=== PATIENT | male | born 1965 | race Caucasian/White ===

== ENCOUNTER 2016-12-03 10:13 | Observation (INO) | payer OTHER ==
[~2016-12-03] VITALS: Ht 182.9 cm; Wt 110.7 kg
[~2016-12-03 10:13] MED LIST: ALPR.5 PO; ASPI-110 PO; LAMO25 PO; METO25TA3 PO; SERO25TA PO; TAMS5CAP PO; TRAM50TA PO; ZOFR4TAB3 SL
[2016-12-03 10:30] VITALS: BP 128/58; PULSE 50; RESP 16; TEMP 97.3; O2SAT 94
[2016-12-03] MEDS ORDERED: TEMAZEPAM 15 MG CAP PO PRN (10:45)
[2016-12-03] MEDS ORDERED: MAGNESIUM HYDROXIDE SUSP 30 ML CUP PO PRN (10:45)
[2016-12-03] MEDS ORDERED: ACETAMINOPHEN 325 MG TAB PO PRN (10:45)
[2016-12-03] MEDS ORDERED: SODIUM CHLORIDE 0.9% FLUSH 10 ML FLUSH IV FLUSH PRN (10:45)
[2016-12-03] MEDS ORDERED: ONDANSETRON HCL 4 MG/2 ML VIAL IVP PRN (10:45)
[2016-12-03] MEDS ORDERED: NALOXONE HCL 0.4 MG/ML AMP IV PRN (10:45)
[2016-12-03] MEDS ORDERED: HYDROmorphone HCL PF 1 MG/ML VIAL IV PUSH PRN (10:45)
[2016-12-03] MEDS ORDERED: LAMO25 PO ×2 (10:50→16:16)
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
[2016-12-03] MEDS: 1/2 NS + KCL 20 MEQ INJ 1,000 ML IV SCH ×3 (11:41→22:07)
[2016-12-03] MEDS: ACETAMINOPHEN/HYDROcodone 325 MG/5 MG TAB PO PRN ×2 (11:41→18:04)
[2016-12-03 12:00] VITALS: BP 125/68; PULSE 53; RESP 16; TEMP 97.4; O2SAT 94
[2016-12-03] MEDS ORDERED: HYDR12.56 PO (12:49)
[2016-12-03] MEDS ORDERED: CETI1TAB53 (12:54)
[2016-12-03] MEDS ORDERED: SYMB160A INH (12:54)
[2016-12-03] MEDS ORDERED: RESP: ALBUTEROL 2.5 MG/IPRATROPIUM 0.5 MG NEB (PRN) NEB STA (15:33)
[2016-12-03 15:59] VITALS: O2SAT 98
[2016-12-03 16:00] VITALS: BP 116/57; PULSE 55; RESP 16; TEMP 97.8; O2SAT 95
[2016-12-03] MEDS ORDERED: ALPRAZolam 0.5 MG TAB PO PRN (16:00)
[2016-12-03] MEDS ORDERED: RESP: ALBUTEROL 2.5 MG/IPRATROPIUM 0.5 MG NEB (PRN) NEB (16:00)
[2016-12-03] MEDS ORDERED: VORT1TAB3 PO (16:09)
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
[2016-12-03] MEDS ORDERED: FLUT1SPR5 EACH NARE (16:17)
[2016-12-03] MEDS ORDERED: RANI1TAB5 PO (16:17)
[2016-12-03] MEDS ORDERED: RANITIDINE 75 MG PO SCH (16:30)
[2016-12-03] MEDS: lamoTRIgine 25 MG TAB PO SCH (17:22)
[2016-12-03] MEDS ORDERED: PILL SPLITTER OTHER PRN (18:00)
[2016-12-03] MEDS: FAMOTIDINE 20 MG TAB PO SCH (18:03)
[2016-12-03] MEDS: BUDESONIDE-FORMOTEROL 160/4.5 MCG INHALER INH SCH ×2 (18:04→22:06)
[2016-12-03 20:00] VITALS: BP 135/61; PULSE 51; RESP 20; TEMP 97.3; O2SAT 98
[2016-12-03] MEDS ORDERED: VORTIOXETINE 20 MG PO SCH (20:00)
[2016-12-03] MEDS: SODIUM CHLORIDE 0.9% FLUSH 10 ML FLUSH IV FLUSH SCH (21:00)
[2016-12-03] MEDS ORDERED: BUDESONIDE-FORMOTEROL 160/4.5 MCG INHALER INH SCH (21:00)
[2016-12-03] MEDS ORDERED: lamoTRIgine 25 MG TAB PO SCH (21:00)
[2016-12-03] MEDS ORDERED: TAMSULOSIN HCL 0.4 MG CAP PO SCH (21:00)
[2016-12-03] MEDS: FLUTICASONE PROPIONATE 50 MCG/ACT 16 GM NASAL SPRAY NASAL SCH (22:04)
[2016-12-03] MEDS: QUEtiapine FUMARATE 25 MG TAB PO SCH (22:06)
[2016-12-04] VITALS: BP 120/57; PULSE 53; RESP 18; TEMP 97.5; O2SAT 95
[2016-12-04] MEDS: ACETAMINOPHEN/HYDROcodone 325 MG/5 MG TAB PO PRN ×2 (00:11→06:50)
[2016-12-04 04:00] VITALS: BP 104/49; PULSE 58; RESP 20; TEMP 97.7; O2SAT 94
[2016-12-04] MEDS ORDERED: POVIDONE IODINE 5% (ANTISEPSIS KIT) 4 APPLICATIONS EACH NARE PRN (05:15)
[2016-12-04] MEDS ORDERED: SODIUM CHLORID 0.9% 500 ML IV PRN (05:15)
[2016-12-04] MEDS ORDERED: LACTATED RINGER'S 1000 ML IV PRN (05:15)
[2016-12-04] MEDS ORDERED: CHLORHEXIDINE GLUCONATE 2 % 1 PACK (2 CLOTHS) TOPICAL PRN (05:15)
[2016-12-04] MEDS ORDERED: INSULIN HUMAN REGULAR 1,000 UNITS/10 ML VIAL SQ PRN (05:15)
[2016-12-04 06:27] LABS: AUTOMATED NEUTROPHIL # 4.2 TH/MM3 (1.8-7.7); BASOPHIL % 0.4 % (0.0-2.0); EOSINOPHIL # 0.1 TH/MM3 (0-0.4); EOSINOPHIL % 1.5 % (0.0-4.0); HEMATOCRIT 38.6 % (39.0-51.0); HEMO FLAGS DIFF FINAL; LYMPH % 30.5 % (9.0-44.0); LYMPHOCYTE # 2.1 TH/MM3 (1.0-4.8); MEAN CELL VOLUME 91.5 FL (80.0-100.0); MEAN CORPUSCULAR HEMOGLOBIN 32.2 PG (27.0-34.0); MEAN CORPUSCULAR HGB CONC 35.2 % (32.0-36.0); MONO % 6.4 % (0.0-8.0); NEUT % 61.2 % (16.0-70.0); PLATELET COUNT 148 TH/MM3 (150-450); RED BLOOD COUNT 4.22 MIL/MM3 (4.50-5.90); RED CELL DISTRIBUTION WIDTH 13.6 % (11.6-17.2); WHITE BLOOD COUNT 6.9 TH/MM3 (4.0-11.0)
[2016-12-04] MEDS: 1/2 NS + KCL 20 MEQ INJ 1,000 ML IV SCH ×2 (06:51→12:01)
[2016-12-04 06:58] LABS: BICARBONATE 25.8 MEQ/L (21.0-32.0)
[2016-12-04 08:00] VITALS: BP 119/55; PULSE 77; RESP 18; TEMP 97.7; O2SAT 94
[2016-12-04] MEDS ORDERED: MIDAZOLAM HCL 2 MG/2 ML VIAL ONE ×2 (08:51→10:39)
[2016-12-04] MEDS ORDERED: FAMOTIDINE 20 MG/2 ML VIAL ONE (08:51)
[2016-12-04] MEDS ORDERED: QUEtiapine FUMARATE 25 MG TAB PO SCH ×2 (09:00→21:00)
[2016-12-04] MEDS: FLUTICASONE PROPIONATE 50 MCG/ACT 16 GM NASAL SPRAY NASAL SCH ×2 (09:00→11:54)
[2016-12-04] MEDS: BUDESONIDE-FORMOTEROL 160/4.5 MCG INHALER INH SCH ×2 (09:00→11:55)
[2016-12-04] MEDS: FAMOTIDINE 20 MG TAB PO SCH (09:00)
[2016-12-04] MEDS: QUEtiapine FUMARATE 25 MG TAB PO SCH (09:00)
[2016-12-04] MEDS: SODIUM CHLORIDE 0.9% FLUSH 10 ML FLUSH IV FLUSH SCH (09:00)
[2016-12-04] MEDS: lamoTRIgine 25 MG TAB PO SCH ×2 (09:00→11:50)
[2016-12-04] MEDS: METOPROLOL TARTRATE 50 MG TAB PO SCH ×2 (09:00→11:50)
[2016-12-04] MEDS ORDERED: ceFAZolin INJ 1,000 MG VIAL IV ONE (09:19)
[2016-12-04] MEDS ORDERED: ONDANSETRON HCL 4 MG/2 ML VIAL ONE (09:38)
[2016-12-04] MEDS ORDERED: DEXAMETHASONE SOD PHOS 4 MG/ML VIAL ONE (09:38)
[2016-12-04] MEDS ORDERED: fentaNYL CITRATE 250 MCG/5 ML AMP ONE (09:38)
[2016-12-04] MEDS ORDERED: KETAMINE HCL 500 MG/5 ML VIAL ONE (09:38)
[2016-12-04] MEDS ORDERED: FUROSEMIDE 100 MG/10 ML VIAL ONE (09:39)
[2016-12-04] MEDS ORDERED: KETOROLAC TROMETHAMINE 60 MG/2 ML (IM) VIAL IM PRN (10:15)
[2016-12-04] MEDS ORDERED: BELLADONNA ALKALOIDS/OPIUM 60 MG SUPP RECTAL PRN (10:15)
--- NOTE | 2016-12-04 10:25 | PD.OP ---
Operative Report Date of Surgery: Dec 04, 2016 Preoperative Diagnosis: Left ureteral calculus with mild/moderate hydronephrosis Erythema of posterior bladder wall Postoperative Diagnosis: Same Procedure: Cystoscopy: left ureteroscopy with laser lithotripsy; stone extraction Bladder biopsy of posterior bladder wall with fulguration Surgeon: Tanmay Marrero Energy Conservation Specialist(s): None Resident Surgeon: None Operation and Findings: 50-year-old male admitted with left-sided flank pain. CT scan demonstrated a 5 mm mid left ureteral calculus causing obstruction with hydronephrosis. Decision was made to bring the patient to the operating room to undergo cystoscopy, left ureteroscopy with laser lithotripsy stone extraction. Risk and benefits were discussed preoperatively and he is willing to proceed. Patient was brought to operating room identified by myself as Partha Iglesias. He 's placed in dorsal lithotomy position, prepped and draped in usual sterile fashion, received preprocedure antibiotics and general endotracheal tube anesthesia was administered. A 22 Bruneian scope was inserted in the bladder and. Cystoscopy revealed some areas of erythema throughout the posterior wall. No bladder tumors were identified. Left ureteral orifice was identified and 0.35 sensor wire was passed into the left ureteral orifice and up into the kidney. A 5 Bruneian open catheter was inserted over the wire and the wire was then removed. Retrograde study was performed demonstrating mild/moderate hydronephrosis with a filling defect in the mid ureter. A nitinol basket was able to be passed through the 5 Bruneian open catheter and up the ureter. The basket was opened and a stone fragment was grasped and pulled down to the distal left UVJ. Leaving the basket in place the scope was removed and a rigid ureteroscope was then passed into the distal left ureteral orifice. The stone was identified and using a 200 his her fiber it was fragmented. Leaving the basket in place, the ureteroscope was removed. The cystoscope was then passed into the bladder and the fragments were evacuated. These were then sent to pathology. The nitinol basket was then removed. Decision was made not to leave a stent at this time. A small area the bladder was then biopsied with the biopsy forceps and the area was then fulgurated. The biopsy specimen was then sent to pathology. The bladder was evacuated and he was awoken and transferred recovery room in stable condition. After the patient voids today he 'll be able to be discharged and follow-up in the office in 1 month to review pathology results at that time. Tanmay Marrero DO Dec 04, 2016 10:25
[2016-12-04] MEDS ORDERED: DO NOT ADM ANY ANTICOAGULANT DRUGS PRN (10:33)
[2016-12-04] MEDS ORDERED: *RESP: ALBUTEROL 2.5 MG/3 ML NEB (PRN) PERIprocedural Use ONLY NEB ONE (10:34)
[2016-12-04] MEDS ORDERED: *MEPERIDINE 25 MG INJ VIAL PERIprocedural Use ONLY ONE (10:36)
[2016-12-04 12:00] VITALS: BP 146/70; PULSE 70; RESP 20; TEMP 98.2; O2SAT 92
[2016-12-04] MEDS ORDERED: PROPOFOL 200 MG/20 ML AMP IV ONE (12:00)
[2016-12-04] MEDS ORDERED: NEOSTIGMINE 3 MG/3 ML SYR IV ONE (12:00)
[2016-12-04] MEDS ORDERED: IOHEXOL 350 MG/ML 50 ML BTL (for RAD DIAG) IV ONE (12:00)
[2016-12-04] MEDS ORDERED: ONDANSETRON HCL 4 MG/2 ML VIAL IV PUSH ONE (12:00)
[2016-12-04] MEDS ORDERED: LACTATED RINGER'S 1000 ML INJ 1,000 ML IV ONE (12:00)
[2016-12-04] MEDS ORDERED: PERC5TAB12 PO (12:47)
[2016-12-04] MEDS ORDERED: BACT800T5 PO (12:47)
[2016-12-04] MEDS ORDERED: PHEN0.4T PO (12:47)
--- NOTE | 2016-12-04 12:55 | HHI.PR ---
Subjective Remarks Pt has cystoscopy with left ureteroscopy with laser lithotripsy, stone extraction and bladder biopsy of posterior bladder wall with fulguration today Pt is doing well post-procedurally. He has urinated Pt is demanding to leave today He has been cleared by Urology for discharge and prescriptions for Bactrim, Percocet, and Pyridium were written by Dr. Marrero and placed in the chart Objective Vitals Vital Signs Date Time Temp Pulse Resp B/P Pulse Ox O2 Delivery O2 Flow Rate FiO2 12/04/16 12:00 98.2 70 20 146/70 92 12/04/16 11:25 97.8 66 17 139/61 95 Nasal Cannula 3 12/04/16 11:00 72 16 158/71 94 Nasal Cannula 3 12/04/16 10:45 70 14 135/69 93 Nasal Cannula 3 12/04/16 10:36 97.9 69 14 132/63 90 Nasal Cannula 3 12/04/16 08:00 97.7 77 18 119/55 94 12/04/16 04:00 97.7 58 20 104/49 94 12/04/16 00:00 97.5 53 18 120/57 95 12/03/16 20:00 97.3 51 20 135/61 98 12/03/16 16:00 97.8 55 16 116/57 95 12/03/16 15:59 98 Nasal Cannula 3.00 12/03/16 12/03/16 12/04/16 15:00 23:00 07:00 Intake Total 950 ml Output Total 500 ml Balance 950 ml -500 ml Intake IV Total 950 ml Output Urine Total 500 ml # Bowel Movements 0 Result Diagram: 12/04/16 0559 12/04/16 0559 Other Results Laboratory Tests Test 12/04/16 12/04/16 04:58 05:59 Nasal Screen MRSA (PCR) MRSA NOT DETECTED White Blood Count 6.9 TH/MM3 Red Blood Count 4.22 MIL/MM3 Hemoglobin 13.6 GM/DL Hematocrit 38.6 % Mean Corpuscular Volume 91.5 FL Mean Corpuscular Hemoglobin 32.2 PG Mean Corpuscular Hemoglobin 35.2 % Concent Red Cell Distribution Width 13.6 % Platelet Count 148 TH/MM3 Mean Platelet Volume 9.0 FL Neutrophils (%) (Auto) 61.2 % Lymphocytes (%) (Auto) 30.5 % Monocytes (%) (Auto) 6.4 % Eosinophils (%) (Auto) 1.5 % Basophils (%) (Auto) 0.4 % Neutrophils # (Auto) 4.2 TH/MM3 Lymphocytes # (Auto) 2.1 TH/MM3 Monocytes # (Auto) 0.4 TH/MM3 Eosinophils # (Auto) 0.1 TH/MM3 Basophils # (Auto) 0.0 TH/MM3 CBC Comment DIFF FINAL Differential Comment Sodium Level 142 MEQ/L Potassium Level 4.0 MEQ/L Chloride Level 108 MEQ/L Carbon Dioxide Level 25.8 MEQ/L Anion Gap 8 MEQ/L Blood Urea Nitrogen 15 MG/DL Creatinine 1.05 MG/DL Estimat Glomerular Filtration 74 ML/MIN Rate Random Glucose 86 MG/DL Calcium Level 7.9 MG/DL Objective Remarks General: NAD, AAOx3 Chest: CTA Cardiac: Regular Abd: +BS, soft ND/NT Ext: No edema A/P Problem List: (1) Renal colic on left side Status: Acute Plan: - Pt is a 51 y/o male with COPD, hx of nephrolithiasis, and HTN who had been having left flank pain for a few weeks but last night he had more severe suprapubic pain and nausea and this prompted him to go to the ED in [place]. - CT Abd/pelvis in the ED demonstrated a 3-4 mm stone in the left ureter causing mild obstruction of the left kidney with mild to moderate hydronephrosis. - Pt was transferred to [facility] for Urology consultation. - Pt had cystoscopy with left ureteroscopy with laser lithotripsy, stone extraction and bladder biopsy of posterior bladder wall with fulguration today with Dr. Marrero - Pt is doing well post-procedurally. - He has urinated - Pt is demanding to leave today - He has been cleared by Urology for discharge and prescriptions for Bactrim, Percocet, and Pyridium were written by Dr. Marrero and placed in the chart - Pt is to followup with Dr. Marrero in 1 month. - Pt is to followup with his PCP, Dr. Dillon, in 1 week. (2) Left nephrolithiasis Status: Acute Plan: - See above (3) Renal insufficiency Status: Acute Plan: - Likely secondary to above. - Cr 1.60 on 12/03 - IVF - Repeat labs in AM (4) COPD (chronic obstructive pulmonary disease) Status: Chronic Plan: - Cont. Symbicort - Pt was weaned off supplemental O2 to RA prior to discharge. (5) PTSD (post-traumatic stress disorder) Status: Chronic Plan: - Resume home meds - Xanax PRN (6) HTN (hypertension) Status: Chronic Plan: - Cont. home meds - Monitor Assessment and Plan Patient examined. Assessment and plan formulated with Sangita Mccallum PA-C. I agree with the above. Sangita Mccallum Dec 04, 2016 12:55 Benji Gutierres DO Dec 09, 2016 00:42
--- NOTE | 2016-12-04 17:58 | EKG ---
Date Performed: 12/03/2016 Time Performed: 11:35:19 PTAGE: 51 years EKG: SINUS BRADYCARDIA BORDERLINE ECG PREVIOUS TRACING : 04/14/1993 00.20 Compared to the previous tracing rate faster DOCTOR: Leeanne Eng Interpretating Date/Time 12/04/2016 17:57:39
[2016-12-11] MEDS ORDERED: TAMS5CAP PO (12:03)
== END 2016-12-04 13:15 | disposition home or self-care (01) ==
LOC: NEDDLT 10:13 → N04A 10:23 → INTOOBSV 10:23
PROVIDERS: ADMIT Hospitalist; ATTEND Hospitalist
DX: N13.2 Hydronephrosis with renal and ureteral calculous obstruction (principal); N32.89 Other specified disorders of bladder; J44.9 Chronic obstructive pulmonary disease, unspecified; I10 Essential (primary) hypertension; F43.12 Post-traumatic stress disorder, chronic; N28.9 Disorder of kidney and ureter, unspecified; K21.9 Gastro-esophageal reflux disease without esophagitis; E66.9 Obesity, unspecified; F17.210 Nicotine dependence, cigarettes, uncomplicated; Z68.33 Body mass index [BMI] 33.0-33.9, adult; Z79.82 Long term (current) use of aspirin
CPT/HCPCS: 00862; 52204; 52353; 74176; 74420; 80048; 80053; 82370; 85025; 87641; 88300; 88305; 93005; 94664; 96361; 96374; 96375; 96376; 99285; C1726; C1769; G0378; J0690; J1100; J1170; J1885; J1940; J2175; J2250; J2270; J2405; J2710; J3010; J7030; J7120; J7613; Q9967; 99281